=== PATIENT | male | born 1945 | race Hispanic/Latino ===

== ENCOUNTER 2022-02-08 17:51 | Emergency (ER) | payer MEDICARE, OTHER ==
[~2022-02-08] VITALS: Ht 167.6 cm; Wt 86.2 kg
[2022-02-08] MEDS ORDERED: IBUPROFEN 600 MG TAB PO STA (18:05)
[2022-02-08] MEDS ORDERED: CYCLOBENZAPRINE HCL 10 MG TAB PO ONE (18:15)
[2022-02-08] MEDS ORDERED: METHOCARBAMOL750 MG PO (19:30)
[2022-02-08] MEDS ORDERED: ANAPROX DS550 MG PO (19:30)
[2022-02-08 19:36] VITALS: BP 143/85
== END 2022-02-08 19:36 | disposition home or self-care (01) ==
LOC: ER 17:55
DX: S20.212A Contusion of left front wall of thorax, initial encounter (principal); S80.01XA Contusion of right knee, initial encounter; S39.012A Strain of muscle, fascia and tendon of lower back, initial encounter; S76.812A Strain of other specified muscles, fascia and tendons at thigh level, left thigh, initial encounter; W01.0XXA Fall on same level from slipping, tripping and stumbling without subsequent striking against object, initial encounter; Y93.01 Activity, walking, marching and hiking; Y92.89 Other specified places as the place of occurrence of the external cause; K21.9 Gastro-esophageal reflux disease without esophagitis
CPT/HCPCS: 71101; 72110; 99283